=== PATIENT | female | born 1950 | race Caucasian/White ===

== ENCOUNTER 2020-10-16 22:04 | Emergency (ER) | payer MEDICARE, OTHER ==
[2020-10-16 22:30] VITALS: BP 137/51; PULSE 98
[2020-10-16] MEDS ORDERED: Ketorolac 30 MG/ML SDV IVPUSH ONE (22:58)
[2020-10-16] MEDS ORDERED: Ondansetron 4 MG/2 ML SDV IVPUSH ONE (22:58)
--- NOTE | 2020-10-16 22:59 | EDM.PDOC ---
ED HPI GENERAL MEDICAL PROBLEM - General Chief Complaint: Gastrointestinal Problem Stated Complaint: nausea, vomiting Time Seen by Provider: 10/16/20 22:40 Source of Information: Reports: Patient History Limitations: Reports: No Limitations - History of Present Illness INITIAL COMMENTS - FREE TEXT/NARRATIVE: Patient presents to ER after developing sudden LLQ abdominal pain this evening. Describes pain as sharp. Had several episodes of emesis at this time. Symptoms resolved on way to ER. Feels a bit tired now but otherwise feels fine. [place] like usual self earlier in day. Denies constipation/diarrhea. No fevers. No other noted changes. Treatments [employer]: Reports: Other Medication(s) Left Lower Abdomen Pain Score (Numeric/FACES): 0 - Related Data Allergies Allergy/AdvReac Type Severity Reaction Status Date / Time No Known Allergies Allergy Verified 06/02/15 09:20 Home Meds: Home Meds Biotin [Kahlil Biotin] 10,000 mcg PO DAILY 06/03/15 [History] Calcium Carbonate/Vitamin D3 [Calcium 600 + Vit D 800 Tab] 2 each PO DAILY 06/03/15 [History] Multivitamin [Multivitamins] 1 each PO DAILY 06/03/15 [History] Diclofenac Sodium 75 mg PO DAILY 10/16/20 [History] amLODIPine Besylate [Amlodipine Besylate] 10 mg PO DAILY 10/16/20 [History] Past Medical History Other Musculoskeletal History: osteopenia Social & Family History - Tobacco Use Tobacco Use Status *Q: Never Tobacco User Second Hand Smoke Exposure: No - Caffeine Use Caffeine Use: Reports: Soda - Recreational Drug Use Recreational Drug Use: No ED ROS GENERAL - Review of Systems Review Of Systems: Comprehensive ROS is negative, except as noted in HPI. GI/Abdominal: Reports: Abdominal Pain, Nausea, Vomiting. Denies: Constipation, Diarrhea, Hematemesis, Hematochezia ED EXAM, GENERAL - Physical Exam Exam: See Below Exam Limited By: No Limitations General Appearance: Alert, WD/WN, No Apparent Distress Eye Exam: Bilateral Eye: EOMI, PERRL Ears: Hearing Grossly Normal Nose: Nasal Deformity, Nasal Swelling, Nasal Drainage Throat/Mouth: Normal Lips, Normal Voice, No Airway Compromise Head: Atraumatic, Normocephalic Neck: Supple Respiratory/Chest: No Respiratory Distress, Lungs Clear, Normal Breath Sounds, No Accessory Muscle Use, Chest Non-Tender Cardiovascular: Regular Rate, Rhythm, No Edema, No Murmur GI/Abdominal: Normal Bowel Sounds, Soft, No Distention, No Abnormal Bruit, No Mass, Other (no focal tenderness noted with palpation) Rectal (Female) Exam: Deferred Back Exam: No: CVA Tenderness (L), CVA Tenderness (R), Muscle Spasm, Paraspinal Tenderness, Vertebral Tenderness Extremities: Normal Inspection, Normal Capillary Refill Neurological: Alert, Oriented, Normal Cognition, Normal Gait, No Motor/Sensory Deficits Psychiatric: Normal Affect, Normal Mood Skin Exam: Warm, Dry, Intact, Normal Color Course - Vital Signs Last Recorded V/S: Last Vital Signs Temp 36.6 C 10/16/20 22:10 Pulse 98 10/16/20 22:10 Resp 12 10/16/20 22:10 BP 137/51 L 10/16/20 22:10 Pulse Ox 98 10/16/20 22:10 - Orders/Labs/Meds Orders: Active Orders 24 hr Category Date Time Status Abdomen 2V AP Flat Upright [CR] Stat Exams 10/16/20 22:12 Taken Labs: Laboratory Tests 10/16/20 10/16/20 10/16/20 Range/Units 22:12 22:20 22:20 WBC 13.2 H (4.0-10.2) K/uL RBC 4.10 (3.77-5.09) M/uL Hgb 12.8 (11.7-15.5) g/dL Hct 38.3 (34.0-46.0) % MCV 93.4 (84.0-98.0) fL MCH 31.2 (28.2-33.3) pg MCHC 33.4 (31.7-36.0) g/dL RDW 12.2 (11.2-14.1) % Plt Count 243 (150-350) K/uL Neut % (Auto) 77.9 (45.0-80.0) % Lymph % (Auto) 13.6 (10.0-50.0) % [place] % (Auto) 7.5 (2.0-14.0) % Eos % (Auto) 0.8 (0.0-5.0) % Baso % (Auto) 0.2 (0.0-2.0) % Neut # (Auto) 10.29 H (1.40-7.00) K/uL Lymph # (Auto) 1.80 (0.50-3.50) K/uL [place] # (Auto) 0.99 (0.00-1.00) K/uL Eos # (Auto) 0.11 (0.00-0.50) K/uL Baso # (Auto) 0.03 (0.00-0.20) K/uL Sodium 140 (136-145) mmol/L Potassium 3.7 (3.5-5.1) mmol/L Chloride 104 (98-107) mmol/L Carbon Dioxide 24.8 (21.0-32.0) mmol/L BUN 24 H (7-18) mg/dL Creatinine 0.94 (0.51-1.17) mg/dL Est Cr Clr Drug Dosing 46.72 mL/min Estimated GFR (MDRD) 59 mL/min Glucose 150 H (74-106) mg/dL Calcium 9.2 (8.5-10.1) mg/dL Total Bilirubin 0.1 L (0.2-1.0) mg/dL AST 18 (15-37) U/L ALT 35 (12-78) U/L Alkaline Phosphatase 109 (46-116) IU/L Total Protein 7.2 (6.4-8.2) g/dL Albumin 3.9 (3.4-5.0) g/dL Amylase 82 (25-115) U/L Lipase 194 (73-393) U/L Specimen Type Urinvoid Urine Color Yellow Urine Appearance Clear Urine pH 7.5 (5.0-9.0) Ur Specific [place] 1.020 (1.005-1.030) Urine Protein Negative (NEGATIVE) mg/dL Urine Glucose (UA) Negative (NEGATIVE) mg/dL Urine Ketones Negative (NEGATIVE) mg/dL Urine Occult Blood Moderate H (NEGATIVE) Urine Nitrite Negative (NEGATIVE) Urine Bilirubin Negative (NEGATIVE) Urine Urobilinogen 0.2 (0.2-1.0) E.U./dL Ur Leukocyte Esterase Negative (NEGATIVE) U Hyaline Cast (Auto) Rare Urine RBC 10-20 H /HPF Urine WBC 0-5 /HPF Ur Epithelial Cells Rare /LPF Urine Bacteria Rare (NONE TO FEW) /HPF Urine Mucus Rare H (NEGATIVE) /LPF Meds: Medications Discontinued Medications Generic Name Dose Route Start Last Admin Trade Name Freq PRN Reason Stop Dose Admin Ketorolac Tromethamine 30 mg 10/16/20 22:58 Toradol IVPUSH 10/16/20 22:59 ONETIME ONE Ondansetron HCl 4 mg 10/16/20 22:58 Zofran IVPUSH 10/16/20 22:59 ONETIME ONE - Re-Assessments/Exams Free Text/Narrative Re-Assessment/Exam: 10/16/20 23:04 Patient asymptomatic by time of arrival other than fatigue complaint. CBC/Chem/Amylase/Lipase unremarkable. UA overall unremarkable. Suspect possible gastroenteritis. Cannot rule out food poisoning. No one else in family ill. Plan at this time is to have patient observe for changes. Will give dose of Toradol and Zofran to help if symptoms return overnight. Precautions reviewed. To follow up as needed if symptoms return/worsen. Departure - Departure Time of Disposition: 23:15 Disposition: Home, Self-Care 01 Condition: Good Clinical Impression: Gastroenteritis - Discharge Information *PRESCRIPTION DRUG MONITORING PROGRAM REVIEWED*: Not Applicable *COPY OF PRESCRIPTION DRUG MONITORING REPORT IN PATIENT [place]: Not Applicable Instructions: Viral Gastroenteritis, Adult, [id number] Referrals: PCP,None [Primary Care Provider] - Forms: ED Department Discharge Additional Instructions: Avoid eating anything tonight. Water only. See how you feel in the morning. I f you are feeling better advance diet as tolerated. Follow up in the ER for recheck if you have worsening problems. Call us if you have questions. Sepsis Event Note (ED) - Evaluation Sepsis Screening Result: No Definite Risk - Focused Exam Vital Signs: Vital Signs Temp Pulse Resp BP Pulse Ox 10/16/20 22:10 36.6 C 98 12 137/51 L 98 - My Orders Last 24 Hours: My Active Orders 10/16/20 22:12 Abdomen 2V AP Flat Upright [CR] Stat - Assessment/Plan Last 24 Hours: My Active Orders 10/16/20 22:12 Abdomen 2V AP Flat Upright [CR] Stat
== END 2020-10-16 23:15 | disposition home or self-care (01) ==
LOC: LL.ED 22:04
DX: K52.9 Noninfective gastroenteritis and colitis, unspecified (principal)
CPT/HCPCS: 36415; 74019; 80053; 81001; 82150; 83690; 85025; 96374; 96375; 99283; 99284-25; J1885; J2405

== ENCOUNTER 2024-07-04 12:06 | Day surgery (SDC) | payer MEDICARE ==
[~2024-07-04 12:06] MED LIST: Midazolam 1 MG/ML 2 ML SDV ONE; Propofol 200 MG/20 ML SDV ONE
[2024-07-04] MEDS ORDERED: Sodium Chloride 0.9% 10 ML Syringe FLUSH PRN (12:15)
[2024-07-04] MEDS: Lactated Ringers 1,000 ML IV SCH (12:34)
[2024-07-04] MEDS ORDERED: Propofol 200 MG/20 ML SDV IV ONE (12:48)
[2024-07-04 13:36] VITALS: BP 153/87; PULSE 61
== END 2024-07-04 14:20 | disposition home or self-care (01) ==
LOC: LL.SDS 12:06
PROVIDERS: ATTEND Surgery
DX: Z12.11 Encounter for screening for malignant neoplasm of colon (principal); D12.8 Benign neoplasm of rectum; Q43.8 Other specified congenital malformations of intestine; E78.5 Hyperlipidemia, unspecified; I10 Essential (primary) hypertension; Z79.899 Other long term (current) drug therapy; Z88.8 Allergy status to other drugs, medicaments and biological substances
CPT/HCPCS: 00811; 88305; 99100; J2250; J2704; J7120